=== PATIENT | male | born 1955 | race Two or more races ===

== ENCOUNTER → 2016-11-21 | Outpatient (CLI) | payer MEDICARE ==
[~2016-11-21] MED LIST: OMNIPAQUE 350 MG/ML, 100ML BOTTLE ONE
== END | disposition home or self-care (01) ==
LOC: CFH 09:41
PROVIDERS: ATTEND Thoracic Surgery (Cardiothoracic Vascular Surgery)
DX: Z01.818 Encounter for other preprocedural examination (principal); I11.0 Hypertensive heart disease with heart failure; I50.40 Unspecified combined systolic (congestive) and diastolic (congestive) heart failure; I25.119 Atherosclerotic heart disease of native coronary artery with unspecified angina pectoris; E11.9 Type 2 diabetes mellitus without complications; E78.5 Hyperlipidemia, unspecified; E78.00 Pure hypercholesterolemia, unspecified; I63.9 Cerebral infarction, unspecified; Z87.820 Personal history of traumatic brain injury; Z86.73 Personal history of transient ischemic attack (TIA), and cerebral infarction without residual deficits; J34.1 Cyst and mucocele of nose and nasal sinus
CPT/HCPCS: 70460; Q9967

== ENCOUNTER 2016-11-26 04:34 | Inpatient (IN) | payer MEDICARE ==
[2016-11-25 15:00] LABS: HEMATOCRIT 48.6 % (39.2-51.8); HEMOGLOBIN 16.2 g/dL (13.7-18.0); WHITE BLOOD COUNT 8.1 x10^3/uL (3.4-10)
[2016-11-25 15:55] LABS: ASPARTATE AMINO TRANSFERASE 9 U/L (15-37); BLOOD UREA NITROGEN 17 mg/dL (7-18)
[~2016-11-26] VITALS: Ht 167.6 cm; Wt 75.5 kg
[~2016-11-26 04:34] MED LIST changes: +AMLO10TA2 PO; +ASPI-496 PO; +GLIP5TAB10 PO; +LINA5TAB PO; +LOSA25TA5 PO; +METF500T4 PO; +METO25TA35 PO; -OMNIPAQUE 350 MG/ML, 100ML BOTTLE ONE; +SITA100T PO
[2016-11-26 04:45] VITALS: BP_SYST 157; BP_SYST 161; BP_DIAS 90; BP_DIAS 93
[2016-11-26] MEDS ORDERED: METOPROLOL TARTRATE 25 MG TABLET PO ONE (05:00)
[2016-11-26] MEDS ORDERED: DO NOT GIVE XX SCH (05:30)
[2016-11-26] MEDS ORDERED: ACETAMINOPHEN 325 MG TABLET PO PRN ×2 (05:30→13:00)
[2016-11-26] MEDS ORDERED: CHLORHEXIDINE MOUTHWASH 15 ML UDC MM SCH (05:30)
[2016-11-26] MEDS ORDERED: DO NOT GIVE MC SCH (05:30)
[2016-11-26] MEDS ORDERED: INSULIN ASPART 100 UNITS/ML, PEN SQ-INSULIN SCH (06:00)
[2016-11-26] MEDS ORDERED: FENTANYL PF 1000 MCG/20ML ONE (07:10)
[2016-11-26] MEDS ORDERED: MIDAZOLAM 10MG/2 ML ONE (07:11)
[2016-11-26] MEDS ORDERED: REGULAR INSULIN 62.5 UNITS in SODIUM CHLORIDE 0.9% 249.375 ML IV PRN ×2 (07:30→12:47)
[2016-11-26] MEDS ORDERED: EPINEPHRINE 2 MG in SODIUM CHLORIDE 0.9% 248 ML IV SCH (07:30)
[2016-11-26] MEDS ORDERED: VANCOMYCIN 1,000 MG in SODIUM CHLORIDE 0.9% 250 ML IV PRN (07:30)
[2016-11-26] MEDS ORDERED: DEXMEDETOMIDINE 200 MCG in SODIUM CHLORIDE 0.9% 48 ML IV SCH (07:30)
[2016-11-26] MEDS ORDERED: PHENYLEPHRINE 10 MG in SODIUM CHLORIDE 0.9% 249 ML IV PRN ×2 (07:30→12:47)
[2016-11-26] MEDS ORDERED: MANNITOL PMX 20% 500 ML IVPB PRN (07:30)
[2016-11-26] MEDS ORDERED: ALBUMIN HUMAN 5% 500 ML IV ONE (07:30)
[2016-11-26] MEDS ORDERED: POTASSIUM CHLORIDE 80 MEQ, SODIUM BICARBONATE 8.4% 10 MEQ, MAGNESIUM SULFATE 0.5 GM, LI... IV PRN (07:30)
[2016-11-26] MEDS ORDERED: CEFUROXIME 1.5 GM in SODIUM CHLORIDE 0.9% 50 ML IVPB PRN (07:30)
[2016-11-26] MEDS ORDERED: PAPAVERINE 30 MG/ML, 2ML IVPush ONE (08:30)
[2016-11-26] MEDS ORDERED: HEPARIN 1,000 UNITS/ML, 10ML IV ONE (08:30)
[2016-11-26] MEDS ORDERED: PROPOFOL 10 MG/ML, 20ML ONE (08:33)
[2016-11-26] MEDS ORDERED: ROCURONIUM 10 MG/ML ONE (08:33)
[2016-11-26] MEDS ORDERED: MUPIROCIN OINT 2%, 22GM TP SCH (09:00)
[2016-11-26] MEDS ORDERED: SODIUM CHLORIDE FLUSH 10ML SYR IVF SCH (09:00)
[2016-11-26] MEDS ORDERED: FENTANYL PF 250 MCG/5ML ONE (11:26)
[2016-11-26] MEDS ORDERED: NITROGLYCERIN/D5W PMX 250 ML IV PRN (12:47)
[2016-11-26] MEDS ORDERED: DEXMEDETOMIDINE 200 MCG in SODIUM CHLORIDE 0.9% 48 ML IV PRN (12:47)
[2016-11-26] MEDS ORDERED: SODIUM CHLORIDE 0.9% 1,000 ML IV ONE (12:47)
[2016-11-26] MEDS ORDERED: SODIUM CHLORIDE 0.9% 1,000 ML IV PRN (12:47)
[2016-11-26] MEDS ORDERED: DOBUTAMINE 250 MG in SODIUM CHLORIDE 0.9% 230 ML IV PRN (12:47)
[2016-11-26] MEDS ORDERED: LIDOCAINE 2% 100MG/5ML SYRINGE ONE (12:59)
[2016-11-26] MEDS ORDERED: ALBUMIN HUMAN 25% 50 ML ONE (12:59)
[2016-11-26] MEDS ORDERED: CALCIUM CHLORIDE 10%, 10ML SYR ONE (12:59)
[2016-11-26] MEDS ORDERED: AMINOCAPROIC ACID 250 MG/ML, 20ML ONE (12:59)
[2016-11-26] MEDS ORDERED: PROTAMINE SULFATE 10 MG/ML, 25ML ONE (12:59)
[2016-11-26] MEDS ORDERED: HEPARIN 1,000 UNITS/ML, 30ML ONE (12:59)
[2016-11-26] MEDS ORDERED: ACETAMINOPHEN 650 MG SUPP PR PRN (13:00)
[2016-11-26] MEDS ORDERED: HEPARIN 1,000 UNITS/ML, 10ML ONE (13:00)
[2016-11-26] MEDS ORDERED: DEXTROSE 4 GM TAB.CHEW PO PRN (13:00)
[2016-11-26] MEDS ORDERED: DEXTROSE 50%, 50ML SYRINGE IVPush PRN (13:00)
[2016-11-26] MEDS ORDERED: morphine SULFATE 10 MG/ML, 1ML IVPush PRN (13:00)
[2016-11-26] MEDS: KSCALE TO 4.5 IV SCH ×2 (13:00→19:00)
[2016-11-26] MEDS ORDERED: ONDANSETRON 2MG/ML, 2ML IVPush PRN (13:00)
[2016-11-26] MEDS ORDERED: MEPERIDINE/PF 25MG/0.5ML IVPush PRN (13:00)
[2016-11-26] MEDS ORDERED: MIDAZOLAM 1 MG/ML, 5ML IVPush PRN (13:00)
[2016-11-26] MEDS ORDERED: PROCHLORPERAZINE 5 MG/ML, 2ML IVPush PRN (13:00)
[2016-11-26] MEDS ORDERED: BISACODYL 10 MG SUPP PR PRN (13:00)
[2016-11-26] MEDS ORDERED: VASOPRESSIN 20 UNIT/ML, 1ML ONE (13:00)
[2016-11-26] MEDS ORDERED: GLUCAGON 1 MG IM PRN (13:00)
[2016-11-26] MEDS ORDERED: methylPREDNISolone SOD SUCC 125 MG/2 ML ONE (13:00)
[2016-11-26] MEDS ORDERED: BISACODYL 5 MG EC TABLET PO PRN (13:00)
[2016-11-26] MEDS ORDERED: PAPAVERINE 30 MG/ML, 2ML ONE (13:00)
[2016-11-26] MEDS ORDERED: EPINEPHRINE 2 MG in SODIUM CHLORIDE 0.9% 248 ML IV PRN (13:00)
[2016-11-26] MEDS ORDERED: LACTATED RINGERS 500 ML IVBOLUS PRN (13:00)
[2016-11-26] MEDS ORDERED: FUROSEMIDE 20 MG/2 ML ONE (13:02)
[2016-11-26 13:09] LABS: ABG COLLECTION SITE ARTERIAL LINE
[2016-11-26 13:27] LABS: HEMATOCRIT 40.6 % (39.2-51.8); HEMOGLOBIN 13.6 g/dL (13.7-18.0)
[2016-11-26] MEDS: SODIUM BICARB 8.4%, 50ML SYRINGE IV PRN ×2 (13:29→14:17)
[2016-11-26] MEDS ORDERED: POTASSIUM CHLORIDE 30 MEQ in SODIUM CHLORIDE 0.9% 100 ML IV ONE ×2 (14:00→20:00)
[2016-11-26] MEDS ORDERED: SODIUM CHLORIDE 0.9% 1,000ML IVBOLUS PRN (14:00)
[2016-11-26] MEDS: MAGNESIUM SULFATE 1 GM in SODIUM CHLORIDE 0.9% 50 ML IVPB SCH (14:12)
[2016-11-26] MEDS: CEFUROXIME 1.5 GM in SODIUM CHLORIDE 0.9% 50 ML IVPB SCH (18:42)
[2016-11-26 18:59] LABS: HEMATOCRIT 41.1 % (39.2-51.8); HEMOGLOBIN 13.6 g/dL (13.7-18.0)
[2016-11-26] MEDS: VANCOMYCIN 1,000 MG in SODIUM CHLORIDE 0.9% 250 ML IVPB SCH (19:42)
[2016-11-26] MEDS: DOCUSATE 100 MG CAPSULE PO SCH (21:00)
[2016-11-26] MEDS: SODIUM CHLORIDE FLUSH 10ML SYR IVF SCH (22:07)
[2016-11-26] MEDS: MUPIROCIN OINT 2%, 22GM NAS SCH (22:07)
[2016-11-27] MEDS: KSCALE TO 4.5 IV SCH ×2 (01:00→07:00)
[2016-11-27 01:14] LABS: HEMATOCRIT 39.8 % (39.2-51.8); HEMOGLOBIN 13.3 g/dL (13.7-18.0)
[2016-11-27] MEDS: HYDROcodone/APAP 10/325 MG TABLET PO PRN ×3 (01:20→21:28)
[2016-11-27] MEDS: INSULIN ASPART 100 UNITS/ML, PEN SQ-INSULIN PRN ×9 (02:09→21:33)
[2016-11-27] MEDS: OXYcodone IR 5MG TABLET PO PRN ×3 (03:40→16:21)
[2016-11-27 04:23] LABS: ABG COLLECTION SITE ARTERIAL LINE
[2016-11-27 04:30] VITALS: BP 110/70
[2016-11-27 04:56] LABS: HEMATOCRIT 38.5 % (39.2-51.8); HEMOGLOBIN 12.7 g/dL (13.7-18.0); WHITE BLOOD COUNT 21.2 x10^3/uL (3.4-10)
[2016-11-27 04:57] LABS: DIFF TOTAL CELLS COUNTED 100 CELL DIFF
[2016-11-27 05:02] LABS: BLOOD UREA NITROGEN 14 mg/dL (7-18)
[2016-11-27] MEDS ORDERED: ALBUTEROL SULFATE 2.5 MG/3 ML NPPB PRN (05:30)
[2016-11-27 05:44] LABS: VERIFY COUNTS? YES
[2016-11-27] MEDS: CEFUROXIME 1.5 GM in SODIUM CHLORIDE 0.9% 50 ML IVPB SCH (06:30)
[2016-11-27 07:27] LABS: HEMATOCRIT 38.5 % (39.2-51.8); HEMOGLOBIN 12.6 g/dL (13.7-18.0)
[2016-11-27] MEDS ORDERED: MAGNESIUM HYDROXIDE 8%, 30ML UDC PO PRN (07:30)
[2016-11-27] MEDS: VANCOMYCIN 1,000 MG in SODIUM CHLORIDE 0.9% 250 ML IVPB SCH (07:47)
[2016-11-27] MEDS: PANTOPRAZOLE 40 MG IV IVPush SCH (08:36)
[2016-11-27] MEDS: POTASSIUM CHLORIDE 10 MEQ TABLET.ER PO SCH (08:36)
[2016-11-27] MEDS: ASPIRIN 81 MG TABLET EC PO SCH (08:36)
[2016-11-27] MEDS: DOCUSATE 100 MG CAPSULE PO SCH ×2 (08:36→21:28)
[2016-11-27] MEDS: SITAGLIPTIN 50MG TABLET PO SCH (08:36)
[2016-11-27] MEDS: METOPROLOL TARTRATE 25 MG TABLET PO/NG SCH ×2 (08:37→21:27)
[2016-11-27] MEDS: FUROSEMIDE 20 MG/2 ML IV SCH (08:37)
[2016-11-27] MEDS: MUPIROCIN OINT 2%, 22GM NAS SCH ×2 (08:37→21:29)
[2016-11-27] MEDS: SODIUM CHLORIDE FLUSH 10ML SYR IVF SCH ×3 (08:37→21:28)
[2016-11-27] MEDS: LINAGLIPTIN 5 MG HOMEMEDPO SCH (08:38)
[2016-11-27] MEDS: MAGNESIUM SULFATE 1 GM in SODIUM CHLORIDE 0.9% 50 ML IVPB SCH (14:20)
[2016-11-27] MEDS: CHLORHEXIDINE MOUTHWASH 15 ML UDC MM SCH (14:20)
[2016-11-27 21:23] VITALS: BP 143/84
[2016-11-28] MEDS: CHLORHEXIDINE MOUTHWASH 15 ML UDC MM SCH ×2 (01:17→09:31)
[2016-11-28 01:20] VITALS: BP 146/84
[2016-11-28 04:43] LABS: HEMATOCRIT 34.7 % (39.2-51.8); HEMOGLOBIN 11.5 g/dL (13.7-18.0); WHITE BLOOD COUNT 19.5 x10^3/uL (3.4-10)
[2016-11-28 04:58] LABS: BLOOD UREA NITROGEN 19 mg/dL (7-18)
[2016-11-28 08:54] VITALS: BP 156/89
[2016-11-28] MEDS: OXYcodone IR 5MG TABLET PO PRN ×2 (08:59→17:50)
[2016-11-28] MEDS ORDERED: ENOXAPARIN 40 MG/0.4 ML SQ SCH (09:00)
[2016-11-28] MEDS: LINAGLIPTIN 5 MG HOMEMEDPO SCH (09:00)
[2016-11-28] MEDS: MUPIROCIN OINT 2%, 22GM NAS SCH ×2 (09:23→21:04)
[2016-11-28] MEDS: DOCUSATE 100 MG CAPSULE PO SCH ×2 (09:23→21:04)
[2016-11-28] MEDS: INSULIN ASPART 100 UNITS/ML, PEN SQ-INSULIN PRN ×4 (09:24→21:06)
[2016-11-28] MEDS: POTASSIUM CHLORIDE 10 MEQ TABLET.ER PO SCH ×2 (09:27→21:05)
[2016-11-28] MEDS: ASPIRIN 81 MG TABLET EC PO SCH (09:27)
[2016-11-28] MEDS: SITAGLIPTIN 50MG TABLET PO SCH (09:27)
[2016-11-28] MEDS: PANTOPRAZOLE 40 MG IV IVPush SCH (09:27)
[2016-11-28] MEDS: METOPROLOL TARTRATE 25 MG TABLET PO/NG SCH ×2 (09:27→21:05)
[2016-11-28] MEDS: FUROSEMIDE 20 MG/2 ML IV SCH ×2 (09:28→21:03)
[2016-11-28] MEDS: SODIUM CHLORIDE FLUSH 10ML SYR IVF SCH ×4 (09:28→21:03)
[2016-11-28] MEDS: MAGNESIUM SULFATE 1 GM in SODIUM CHLORIDE 0.9% 50 ML IVPB SCH (11:46)
[2016-11-28] MEDS: HYDROcodone/APAP 10/325 MG TABLET PO PRN ×2 (11:47→16:40)
[2016-11-28] MEDS: GUAIFENESIN 200 MG TABLET PO SCH ×2 (16:40→21:05)
[2016-11-28] MEDS ORDERED: LIDOCAINE 1%, 20ML ONE (17:13)
[2016-11-28 18:32] VITALS: BP 147/90
[2016-11-29 00:56] VITALS: BP 138/89
[2016-11-29] MEDS: CHLORHEXIDINE MOUTHWASH 15 ML UDC MM SCH (02:01)
[2016-11-29] MEDS: GUAIFENESIN 200 MG TABLET PO SCH ×4 (04:35→20:25)
[2016-11-29] MEDS: OXYcodone IR 5MG TABLET PO PRN (04:35)
[2016-11-29 05:04] LABS: BLOOD UREA NITROGEN 17 mg/dL (7-18)
[2016-11-29 08:15] VITALS: BP 146/90
[2016-11-29] MEDS: SITAGLIPTIN 50MG TABLET PO SCH (08:25)
[2016-11-29] MEDS: DOCUSATE 100 MG CAPSULE PO SCH ×2 (08:25→20:25)
[2016-11-29] MEDS: PANTOPRAZOLE 40 MG IV IVPush SCH (08:25)
[2016-11-29] MEDS: FUROSEMIDE 20 MG/2 ML IV SCH ×2 (08:25→20:24)
[2016-11-29] MEDS: CLOPIDOGREL 75 MG TABLET PO SCH (08:25)
[2016-11-29] MEDS: METOPROLOL TARTRATE 25 MG TABLET PO/NG SCH ×2 (08:26→20:22)
[2016-11-29] MEDS: POTASSIUM CHLORIDE 10 MEQ TABLET.ER PO SCH ×2 (08:26→20:25)
[2016-11-29] MEDS: ASPIRIN 81 MG TABLET EC PO SCH (08:26)
[2016-11-29] MEDS: LOSARTAN 25MG TABLET PO SCH (08:26)
[2016-11-29] MEDS: LINAGLIPTIN 5 MG HOMEMEDPO SCH (08:27)
[2016-11-29] MEDS: SODIUM CHLORIDE FLUSH 10ML SYR IVF SCH ×4 (08:27→20:24)
[2016-11-29] MEDS: INSULIN ASPART 100 UNITS/ML, PEN SQ-INSULIN PRN ×4 (08:35→20:41)
[2016-11-29] MEDS: MUPIROCIN OINT 2%, 22GM NAS SCH ×2 (08:36→20:24)
[2016-11-29] MEDS: HYDROcodone/APAP 10/325 MG TABLET PO PRN ×2 (10:00→20:27)
[2016-11-29] MEDS: AMLODIPINE 5 MG TABLET PO SCH (13:04)
[2016-11-29 15:01] VITALS: BP 135/80
[2016-11-29 20:20] VITALS: BP 138/80
[2016-11-30 01:37] VITALS: BP 132/87
[2016-11-30] MEDS: OXYcodone IR 5MG TABLET PO PRN ×2 (01:43→06:26)
[2016-11-30 05:52] LABS: HEMATOCRIT 34.1 % (39.2-51.8); HEMOGLOBIN 11.5 g/dL (13.7-18.0); WHITE BLOOD COUNT 10.4 x10^3/uL (3.4-10)
[2016-11-30 06:15] LABS: BLOOD UREA NITROGEN 18 mg/dL (7-18)
[2016-11-30] MEDS: GUAIFENESIN 200 MG TABLET PO SCH ×4 (06:26→20:51)
[2016-11-30 08:35] VITALS: BP 132/83
[2016-11-30] MEDS: INSULIN ASPART 100 UNITS/ML, PEN SQ-INSULIN PRN ×4 (08:44→21:03)
[2016-11-30] MEDS: PANTOPRAZOLE 40 MG IV IVPush SCH (08:44)
[2016-11-30] MEDS: AMLODIPINE 5 MG TABLET PO SCH (08:45)
[2016-11-30] MEDS: DOCUSATE 100 MG CAPSULE PO SCH ×2 (08:45→20:51)
[2016-11-30] MEDS: ASPIRIN 81 MG TABLET EC PO SCH (08:45)
[2016-11-30] MEDS: FUROSEMIDE 20 MG/2 ML IV SCH ×2 (08:45→20:49)
[2016-11-30] MEDS: METOPROLOL TARTRATE 25 MG TABLET PO/NG SCH ×2 (08:45→20:51)
[2016-11-30] MEDS: LOSARTAN 25MG TABLET PO SCH (08:45)
[2016-11-30] MEDS: POTASSIUM CHLORIDE 10 MEQ TABLET.ER PO SCH ×2 (08:45→20:51)
[2016-11-30] MEDS: SITAGLIPTIN 50MG TABLET PO SCH (08:45)
[2016-11-30] MEDS: CLOPIDOGREL 75 MG TABLET PO SCH (08:45)
[2016-11-30] MEDS: MUPIROCIN OINT 2%, 22GM NAS SCH ×2 (08:45→20:50)
[2016-11-30] MEDS: LINAGLIPTIN 5 MG HOMEMEDPO SCH (08:46)
[2016-11-30] MEDS: SODIUM CHLORIDE FLUSH 10ML SYR IVF SCH ×4 (08:46→20:50)
[2016-11-30] MEDS: HYDROcodone/APAP 10/325 MG TABLET PO PRN (11:27)
[2016-11-30 16:45] VITALS: BP 141/90
[2016-11-30] MEDS ORDERED: GLUCAGON 1 MG IM PRN (17:00)
[2016-11-30] MEDS ORDERED: ONDANSETRON 2MG/ML, 2ML IVPush PRN (17:00)
[2016-11-30] MEDS ORDERED: PROCHLORPERAZINE 5 MG/ML, 2ML IVPush PRN (17:00)
[2016-11-30] MEDS ORDERED: SODIUM CHLORIDE 0.9% 1,000ML IVBOLUS PRN (17:00)
[2016-11-30] MEDS ORDERED: BISACODYL 5 MG EC TABLET PO PRN (17:00)
[2016-11-30] MEDS ORDERED: DEXTROSE 50%, 50ML SYRINGE IVPush PRN (17:00)
[2016-11-30] MEDS ORDERED: BISACODYL 10 MG SUPP PR PRN (17:00)
[2016-11-30] MEDS ORDERED: LACTATED RINGERS 500 ML IVBOLUS PRN (17:00)
[2016-11-30 20:37] VITALS: BP 145/88
[2016-12-01 01:14] VITALS: BP 128/87
[2016-12-01] MEDS: OXYcodone IR 5MG TABLET PO PRN (03:03)
[2016-12-01] MEDS: DOCUSATE 100 MG CAPSULE PO SCH ×2 (03:04→08:46)
[2016-12-01 05:24] LABS: BLOOD UREA NITROGEN 19 mg/dL (7-18)
[2016-12-01] MEDS: HYDROcodone/APAP 10/325 MG TABLET PO PRN ×3 (06:22→17:19)
[2016-12-01] MEDS: GUAIFENESIN 200 MG TABLET PO SCH (06:22)
[2016-12-01] MEDS: SODIUM CHLORIDE FLUSH 10ML SYR IVF SCH ×2 (06:23→08:44)
[2016-12-01 08:14] VITALS: BP 133/83
[2016-12-01 08:37] VITALS: BP 135/81
[2016-12-01] MEDS: MUPIROCIN OINT 2%, 22GM NAS SCH (08:42)
[2016-12-01] MEDS: POTASSIUM CHLORIDE 10 MEQ TABLET.ER PO SCH (08:43)
[2016-12-01] MEDS: FUROSEMIDE 20 MG/2 ML IV SCH (08:44)
[2016-12-01] MEDS: SITAGLIPTIN 50MG TABLET PO SCH (08:45)
[2016-12-01] MEDS: PANTOPRAZOLE 40 MG IV IVPush SCH (08:45)
[2016-12-01] MEDS: CLOPIDOGREL 75 MG TABLET PO SCH (08:45)
[2016-12-01] MEDS: LOSARTAN 25MG TABLET PO SCH (08:46)
[2016-12-01] MEDS: AMLODIPINE 5 MG TABLET PO SCH (08:46)
[2016-12-01] MEDS: ASPIRIN 81 MG TABLET EC PO SCH (08:46)
[2016-12-01] MEDS: METOPROLOL TARTRATE 25 MG TABLET PO/NG SCH (08:46)
[2016-12-01] MEDS: INSULIN ASPART 100 UNITS/ML, PEN SQ-INSULIN PRN (08:59)
[2016-12-01] MEDS ORDERED: LINAGLIPTIN 5 MG HOMEMEDPO SCH (09:00)
[2016-12-01] MEDS ORDERED: METO100T11 PO ×3 (16:04→16:10)
[2016-12-01] MEDS ORDERED: CLOP75TA22 PO (16:11)
[2016-12-01] MEDS ORDERED: FURO-93 PO (16:11)
[2016-12-01] MEDS ORDERED: POTA10TA11 PO (16:13)
[2016-12-01] MEDS ORDERED: HYDR-3138 PO (16:14)
== END 2016-12-01 17:25 | disposition home health service (06) | DRG 235 ==
LOC: 5SO 04:34 → CSU 08:19 → CCU 08:40 → 5SO 11-27 15:58
PROVIDERS: ADMIT Thoracic Surgery (Cardiothoracic Vascular Surgery); ATTEND Thoracic Surgery (Cardiothoracic Vascular Surgery)
PROC: 02100Z9 Bypass Coronary Artery, One Artery from Left Internal Mammary, Open Approach (ICD-10-PCS; 2016-11-26)
PROC: 06BP4ZZ Excision of Right Saphenous Vein, Percutaneous Endoscopic Approach (ICD-10-PCS; 2016-11-26)
PROC: 06BR0ZZ (ICD-10-PCS; 2016-11-26)
PROC: 5A1221Z Performance of Cardiac Output, Continuous (ICD-10-PCS; 2016-11-26)
PROC: B24BZZ4 Ultrasonography of Heart with Aorta, Transesophageal (ICD-10-PCS; 2016-11-26)
PROC: 5A1213Z Performance of Cardiac Pacing, Intermittent (ICD-10-PCS; 2016-11-26)
PROC: 021209W Bypass Coronary Artery, Three Arteries from Aorta with Autologous Venous Tissue, Open Approach (ICD-10-PCS; principal; 2016-11-26 08:00)
PROC: BB4BZZZ Ultrasonography of Pleura (ICD-10-PCS; 2016-11-28)
PROC: 0W993ZZ Drainage of Right Pleural Cavity, Percutaneous Approach (ICD-10-PCS; 2016-11-28)
DX: I25.119 Atherosclerotic heart disease of native coronary artery with unspecified angina pectoris (principal); I50.41 Acute combined systolic (congestive) and diastolic (congestive) heart failure; R06.89 Other abnormalities of breathing; E78.5 Hyperlipidemia, unspecified; I11.0 Hypertensive heart disease with heart failure; E11.9 Type 2 diabetes mellitus without complications; I95.9 Hypotension, unspecified; E78.00 Pure hypercholesterolemia, unspecified; Z79.4 Long term (current) use of insulin; Z87.820 Personal history of traumatic brain injury
CPT/HCPCS: 32555; 36415; 36600; 71010; 71020; 80048; 80053; 81003; 82040; 82330; 82800; 82803; 82810; 82947; 82962; 83036; 83735; 84132; 84295; 85014; 85018; 85025; 85049; 85347; 85610; 85730; 86850; 86900; 86923; 87081; 93005; 93312; 93321; 93325; 93970; 94002; 94003; 94150; 94640; J0697; J1644; J1650; J1815; J2250; J2704; J2720; J3010; J3370; J3475; J3480; J3490; P9045; P9047; C1751; C9113; J0171; J1940; J2270; J2370; J2440; J2930; J7030; J7050

== ENCOUNTER 2017-01-06 15:46 | Inpatient (IN) | payer MEDICARE ==
[~2017-01-06] VITALS: Ht 167.6 cm; Wt 72.0 kg
[~2017-01-06 15:46] MED LIST changes: +CLOP75TA52 PO; +FURO-93 PO; +HYDR-3237 PO; +METO-290 PO; +POTA10TA11 PO
[2017-01-06] MEDS ORDERED: SODIUM CHLORIDE FLUSH 10ML SYR IVF ONE (16:30)
[2017-01-06 16:43] LABS: HEMATOCRIT 38.2 % (39.2-51.8); HEMOGLOBIN 12.5 g/dL (13.7-18.0); WHITE BLOOD COUNT 7.5 x10^3/uL (3.4-10)
[2017-01-06 17:04] LABS: ASPARTATE AMINO TRANSFERASE 11 U/L (15-37); BLOOD UREA NITROGEN 19 mg/dL (7-18)
[2017-01-06 17:08] LABS: IS PT STATUS REG ER OR PRE ER? YES
[2017-01-06] MEDS ORDERED: ATOR-2 PO (18:19)
[2017-01-06] MEDS ORDERED: METF500T4 PO (18:19)
[2017-01-06] MEDS ORDERED: SODIUM CHLORIDE FLUSH 10ML SYR IVF PRN (19:00)
[2017-01-06] MEDS ORDERED: ONDANSETRON ODT 4 MG PO PRN (19:30)
[2017-01-06] MEDS ORDERED: ACETAMINOPHEN 325 MG TABLET PO PRN (19:30)
[2017-01-06] MEDS ORDERED: LABETALOL 5MG/ML, 20ML IVPush PRN (19:30)
[2017-01-06] MEDS ORDERED: DOCUSATE 100 MG CAPSULE PO PRN (19:30)
[2017-01-06] MEDS ORDERED: NITROGLYCERIN 0.4 MG BOTTLE (25 TABS) SL PRN (19:30)
[2017-01-06] MEDS ORDERED: morphine SULFATE 10 MG/ML, 1ML IVPush PRN (19:30)
[2017-01-06] MEDS ORDERED: TEMAZEPAM 15 MG CAPSULE PO PRN (19:30)
[2017-01-06] MEDS ORDERED: ENALAPRILAT 1.25 MG/ML, 2ML IVPush PRN (19:30)
[2017-01-06 20:08] LABS: IS PT STATUS REG ER OR PRE ER? YES
[2017-01-06 20:36] VITALS: BP 168/103
[2017-01-06] MEDS: ENOXAPARIN 40 MG/0.4 ML SQ SCH (21:57)
[2017-01-06] MEDS: ATORVASTATIN 80 MG TABLET PO SCH (21:58)
[2017-01-06] MEDS: FUROSEMIDE 40 MG/4 ML IV SCH (21:58)
[2017-01-06] MEDS: INSULIN ASPART 100 UNITS/ML, PEN SQ-INSULIN SCH (22:10)
[2017-01-06] MEDS: INSULIN DETEMIR 100 UNITS/ML, PEN SQ-INSULIN SCH (22:10)
[2017-01-07 00:54] VITALS: BP 146/91
[2017-01-07 02:13] LABS: BLOOD UREA NITROGEN 19 mg/dL (7-18)
[2017-01-07 02:23] LABS: ASPARTATE AMINO TRANSFERASE 13 U/L (15-37)
[2017-01-07 02:44] LABS: IS PT STATUS REG ER OR PRE ER? NO
[2017-01-07] MEDS: FUROSEMIDE 40 MG/4 ML IV SCH (06:08)
[2017-01-07 08:05] VITALS: BP 149/87
[2017-01-07] MEDS: POTASSIUM CHLORIDE 20 MEQ TAB.ER.PRT PO SCH ×2 (10:05→15:55)
[2017-01-07] MEDS: CLOPIDOGREL 75 MG TABLET PO SCH (10:05)
[2017-01-07] MEDS: INSULIN DETEMIR 100 UNITS/ML, PEN SQ-INSULIN SCH ×2 (10:06→20:22)
[2017-01-07] MEDS: LOSARTAN 25MG TABLET PO SCH (10:06)
[2017-01-07] MEDS: INSULIN ASPART 100 UNITS/ML, PEN SQ-INSULIN SCH ×4 (10:08→20:22)
[2017-01-07] MEDS: METOPROLOL SUCCINATE 100 MG TAB.ER.24H PO SCH (10:09)
[2017-01-07 13:25] VITALS: BP 155/93
[2017-01-07] MEDS: ENOXAPARIN 40 MG/0.4 ML SQ SCH (20:20)
[2017-01-07] MEDS: ATORVASTATIN 80 MG TABLET PO SCH (20:20)
[2017-01-07 21:50] VITALS: BP 157/94
[2017-01-08 02:04] VITALS: BP 152/84
[2017-01-08 06:11] LABS: BLOOD UREA NITROGEN 18 mg/dL (7-18)
[2017-01-08 06:14] LABS: HEMOGLOBIN 13.7 g/dL (13.7-18.0); WHITE BLOOD COUNT 7.9 x10^3/uL (3.4-10)
[2017-01-08] MEDS: INSULIN ASPART 100 UNITS/ML, PEN SQ-INSULIN SCH ×4 (07:00→20:29)
[2017-01-08 08:02] VITALS: BP 158/98
[2017-01-08] MEDS: CLOPIDOGREL 75 MG TABLET PO SCH (09:26)
[2017-01-08] MEDS: INSULIN DETEMIR 100 UNITS/ML, PEN SQ-INSULIN SCH ×2 (09:26→20:30)
[2017-01-08] MEDS: LOSARTAN 25MG TABLET PO SCH (09:26)
[2017-01-08] MEDS: METOPROLOL SUCCINATE 100 MG TAB.ER.24H PO SCH (09:26)
[2017-01-08] MEDS: POTASSIUM CHLORIDE 20 MEQ TAB.ER.PRT PO SCH ×2 (09:26→17:20)
[2017-01-08] MEDS: FUROSEMIDE 40 MG/4 ML IV SCH (09:27)
[2017-01-08 13:26] VITALS: BP 147/97
[2017-01-08] MEDS: ATORVASTATIN 80 MG TABLET PO SCH (20:28)
[2017-01-08] MEDS: ENOXAPARIN 40 MG/0.4 ML SQ SCH (20:29)
[2017-01-08 21:10] VITALS: BP 155/98
[2017-01-09 03:31] VITALS: BP 147/91
[2017-01-09] MEDS: INSULIN ASPART 100 UNITS/ML, PEN SQ-INSULIN SCH ×2 (07:00→11:44)
[2017-01-09 07:36] LABS: HEMATOCRIT 41.6 % (39.2-51.8); HEMOGLOBIN 13.7 g/dL (13.7-18.0); WHITE BLOOD COUNT 7.1 x10^3/uL (3.4-10)
[2017-01-09 07:40] LABS: BLOOD UREA NITROGEN 21 mg/dL (7-18)
[2017-01-09 09:28] VITALS: BP 147/83
[2017-01-09] MEDS: FUROSEMIDE 40 MG/4 ML IV SCH (09:34)
[2017-01-09] MEDS: METOPROLOL SUCCINATE 100 MG TAB.ER.24H PO SCH (09:34)
[2017-01-09] MEDS: POTASSIUM CHLORIDE 20 MEQ TAB.ER.PRT PO SCH (09:34)
[2017-01-09] MEDS: CLOPIDOGREL 75 MG TABLET PO SCH (09:35)
[2017-01-09] MEDS: LOSARTAN 25MG TABLET PO SCH (09:35)
[2017-01-09] MEDS: INSULIN DETEMIR 100 UNITS/ML, PEN SQ-INSULIN SCH (09:38)
[2017-01-09] MEDS ORDERED: FURO-93 PO (11:27)
[2017-01-09] MEDS ORDERED: POTA10TA11 PO (11:27)
== END 2017-01-09 13:05 | disposition home health service (06) | DRG 302 ==
LOC: ED 18:54 → EDIP 19:03 → 5SO 20:26 → DCLOUNGE 01-09 12:20
PROVIDERS: ADMIT Internal Medicine; ATTEND Internal Medicine
DX: I25.119 Atherosclerotic heart disease of native coronary artery with unspecified angina pectoris (principal); I50.23 Acute on chronic systolic (congestive) heart failure; I11.0 Hypertensive heart disease with heart failure; E11.65 Type 2 diabetes mellitus with hyperglycemia; Z95.1 Presence of aortocoronary bypass graft; E87.6 Hypokalemia; D63.8 Anemia in other chronic diseases classified elsewhere; E78.00 Pure hypercholesterolemia, unspecified; Z79.82 Long term (current) use of aspirin; Z87.820 Personal history of traumatic brain injury; R06.00 Dyspnea, unspecified
CPT/HCPCS: 36415; 71010; 80048; 80053; 80061; 82962; 83036; 83735; 83880; 84100; 84443; 84484; 85025; 93005; 93306; 99285; J1650; J1815; J1940